=== PATIENT | female | born 1960 ===

== ENCOUNTER 2018-08-02 03:52 | Inpatient (IN) | payer MEDICARE ==
[2018-08-02] MEDS ORDERED: NACL 0.9% 1000 ML 1,000 ML IV ONE (04:16)
[2018-08-02 04:48] LABS: Basophils # (Auto) 0.1 K/mm3 (0.0-0.1); Basophils % (Auto) 0.4 % (0.0-1.8); Hematocrit 42.1 % (30.3-42.9); Hemoglobin 14.2 gm/dl (10.1-14.3); Lymphocytes % (Auto) 5.8 % (13.4-35.0); Mean Corpuscular HGB Conc 34 % (30-34); Mean Corpuscular Volume 88 fl (79-97); Monocytes # (Auto) 0.8 K/mm3 (0.0-0.8); Monocytes % (Auto) 4.4 % (0.0-7.3); Platelet Count 362 K/mm3 (140-440); Red Blood Count 4.78 M/mm3 (3.65-5.03); Red Cell Distribution Width 14.4 % (13.2-15.2)
[2018-08-02 05:12] LABS: Alanine Aminotransferase 21 units/L (7-56); BUN/Creatinine Ratio 11; Blood Urea Nitrogen 10 mg/dL (7-17); Calcium 9.7 mg/dL (8.4-10.2); Hemolysis Index 60
--- NOTE | 2018-08-02 06:37 | Emergency Department Report ---
ED General Adult HPI - General Chief complaint: Dizziness Stated complaint: DIZZINESS VOMITTING PAIN Time Seen by Provider: 08/02/18 06:34 Source: patient Mode of arrival: Ambulatory Limitations: No Limitations - History of Present Illness Initial comments: This is a 58-year-old female with no prior cardiac workup who describes to me an episode consisting of substernal chest discomfort like indigestion" which did not radiate, sweating, nausea, weakness that began at about 5:00 PM yesterday. She states she still feels somewhat weak but is not experiencing chest pain. She states that she's had some shortness of breath. She is recently flown up here from [place] but denies any prolonged flights of road travel. She does not complain of leg pain or swelling. She is generally a poor historian. However she states that the pain was not pleuritic and nonradiating. She additionally tells me that she has "2 veins in her head" which were diagnosed when she was admitted to the hospital [address] [place] [address]. She is not familiar with the term aneurysm. However, she was told this required some follow-up. She gives a history of hypotension. -: Gradual, hour(s) Location: chest Radiation: non-radiation Severity scale (0 -10): 8 Quality: other ("like indigestion") Consistency: now resolved Improves with: none Worsens with: none Associated Symptoms: other (as above described) Treatments Prior to Arrival: none - Related Data Home Medications Medication Instructions Recorded Confirmed Last Taken Aspirin 81 mg PO DAILY 08/02/18 08/02/18 Unknown Losartan-Hctz 100-25 mg Tab 100 mg PO DAILY 08/02/18 08/02/18 Unknown Protonix 40 mg PO DAILY 08/02/18 08/02/18 Unknown Simvastatin 20 mg PO HS 08/02/18 08/02/18 Unknown amLODIPine 5 mg PO DAILY 08/02/18 08/02/18 Unknown Allergies Allergy/AdvReac Type Severity Reaction Status Date / Time clonidine Allergy Anaphylaxis Verified 08/02/18 03:55 Penicillins Allergy Hives Verified 08/02/18 03:55 ED Review of Systems ROS: Stated complaint: DIZZINESS VOMITTING PAIN Other details as noted in HPI Constitutional: weakness, other (dizziness). denies: chills, fever Eyes: denies: eye pain, eye discharge, vision change ENT: denies: ear pain, throat pain Respiratory: shortness of breath. denies: cough, wheezing Cardiovascular: chest pain. denies: palpitations Endocrine: no symptoms reported Gastrointestinal: nausea. denies: abdominal pain, diarrhea Genitourinary: denies: urgency, dysuria, discharge Musculoskeletal: denies: back pain, joint swelling, arthralgia Skin: denies: rash, lesions Neurological: denies: headache, weakness, numbness, paresthesias, confusion, abnormal gait, vertigo Psychiatric: denies: anxiety, depression Hematological/Lymphatic: denies: easy bleeding, easy bruising ED Past Medical Hx - Past Medical History Hx Hypertension: Yes Additional medical history: H.pylori, - Surgical History Past Surgical History?: Yes Hx Cholecystectomy: Yes Additional Surgical History: hysterectomy, - Social History Smoking Status: Never Smoker Substance Use Type: None - Medications Home Medications: Home Medications Medication Instructions Recorded Confirmed Last Taken Type Aspirin 81 mg PO DAILY 08/02/18 08/02/18 Unknown History Losartan-Hctz 100-25 mg Tab 100 mg PO DAILY 08/02/18 08/02/18 Unknown History Protonix 40 mg PO DAILY 08/02/18 08/02/18 Unknown History Simvastatin 20 mg PO HS 08/02/18 08/02/18 Unknown History amLODIPine 5 mg PO DAILY 08/02/18 08/02/18 Unknown History ED Physical Exam - General Limitations: No Limitations General appearance: alert, in no apparent distress - Head Head exam: Present: atraumatic, normocephalic - Eye Eye exam: Present: normal appearance. Absent: scleral icterus - ENT ENT exam: Present: mucous membranes moist - Neck Neck exam: Present: normal inspection. Absent: tenderness, meningismus - Respiratory Respiratory exam: Present: normal lung sounds bilaterally. Absent: respiratory distress - Cardiovascular Cardiovascular Exam: Present: regular rate, normal rhythm. Absent: systolic murmur, diastolic murmur, rubs, gallop - GI/Abdominal GI/Abdominal exam: Present: soft, normal bowel sounds. Absent: distended, tenderness, guarding, rebound, rigid - Extremities Exam Extremities exam: Present: normal inspection - Back Exam Back exam: Present: normal inspection - Neurological Exam Neurological exam: Present: alert, oriented X3, CN II-XII intact. Absent: motor sensory deficit - Psychiatric Psychiatric exam: Present: normal affect, normal mood - Skin Skin exam: Present: warm, dry, intact, normal color. Absent: rash ED Course Vital Signs 08/02/18 08/02/18 08/02/18 03:59 04:08 08:27 Temperature 98.6 F 98.6 F Pulse Rate 108 H 108 H 84 Respiratory 20 16 16 Rate Blood Pressure 105/67 105/67 Blood Pressure 126/72 [Left] O2 Sat by Pulse 94 96 Oximetry - Reevaluation(s) Reevaluation #1: It occurs to me that the patient's amlodipine might be too high dose for her. Her blood pressures initially were on the low side. However, she has unexplained chest pain and will be admitted for further care and evaluation by Dr. Montes. 08/02/18 09:38 08/02/18 09:40 Lactic acid and blood cultures will be obtained. A urinalysis is still pending. ED Medical Decision Making - Lab Data Result diagrams: 08/02/18 04:20 08/02/18 04:20 Laboratory Results - last 24 hr 08/02/18 08/02/18 04:20 04:20 WBC 17.1 H RBC 4.78 Hgb 14.2 Hct 42.1 MCV 88 MCH 30 MCHC 34 RDW 14.4 Plt Count 362 Lymph % (Auto) 5.8 L [place] % (Auto) 4.4 Eos % (Auto) 0.0 Baso % (Auto) 0.4 Lymph # 1.0 L [place] # 0.8 Eos # 0.0 Baso # 0.1 Seg Neutrophils % 89.4 H Seg Neutrophils # 15.3 H Sodium 142 Potassium 3.8 Chloride 102.5 Carbon Dioxide 25 Anion Gap 18 BUN 10 Creatinine 0.9 Estimated GFR > 60 BUN/Creatinine Ratio 11 Glucose 141 H Calcium 9.7 Total Bilirubin 0.60 AST 25 ALT 21 Alkaline Phosphatase 112 Total Protein 7.3 Albumin 4.0 Albumin/Globulin Ratio 1.2 Lipase 14 - EKG Data -: EKG Interpreted by Me EKG shows normal: sinus rhythm, intervals, QRS complexes, ST-T waves Rate: normal - EKG Data Interpretation: other (left axis deviation, poor R-wave progression versus anterior rotation of the horizontal plane) - Radiology Data Radiology results: report reviewed (CT of the head and chest x-ray showed no acute process) Critical care attestation.: If time is entered above; I have spent that time in minutes in the direct care of this critically ill patient, excluding procedure time. ED Disposition Clinical Impression: Weakness Chest pain Qualifiers: Chest pain type: unspecified Qualified Code(s): R07.9 - Chest pain, unspecified Disposition: OP ADMIT IP TO THIS HOSP Is pt being admited?: Yes Does the pt Need Aspirin: Yes Condition: Stable Instructions: Chest Pain (ED) Referrals: LUCIA HERZOG MD [Primary Care Provider] - 3-5 Days Time of Disposition: 09:40
--- NOTE | 2018-08-02 07:41 | XRay Report ---
PROCEDURE: XR CHEST 1V AP TECHNIQUE: A portable upright view of the chest was made. HISTORY: cp COMPARISONS: None FINDINGS: The heart size is normal. The lungs are not congested. There is very mild bibasilar atelectasis. The bones and soft tissues are well-maintained. IMPRESSION: Very mild bibasilar atelectasis. No acute infiltrates or congestion.. This document is electronically signed by Robert Caban MD., August 02 2018 07:39:01 AM ET
[2018-08-02 08:09] LABS: Creatine Kinase MB 1.2 ng/mL (0.0-4.0)
[2018-08-02 08:27] LABS: INR 1.59 (0.87-1.13)
[2018-08-02 08:28] LABS: Partial Thromboplastin Time 34.5 Sec. (24.2-36.6)
--- NOTE | 2018-08-02 08:30 | Cat Scan Report ---
PROCEDURE: CT HEAD/BRAIN WO CON TECHNIQUE: CT images obtained through the head without contrast HISTORY: near syncope history of "2 veins in my head" COMPARISONS: None FINDINGS: The ventricles, cisterns and sulci are within normal limits. No intra parenchymal or extra-axial mass , hemorrhage, or mass effect. Robbins and white-matter differentiation is within normal limits for tatum ent age. Normal spherical shape of the globes. No significant abnormality involving the imaged portions of th e paranasal sinuses and mastoid air cells. No skull or facial fracture visualized. IMPRESSION: No acute intracranial abnormality. This document is electronically signed by Patrick Bonner MD., August 02 2018 08:28:02 AM ET
[2018-08-02] MEDS ORDERED: ASPIRIN PO ONE (09:40)
[2018-08-02] MEDS ORDERED: FLEXERIL PO ONE (09:51)
[2018-08-02] MEDS ORDERED: FLEXERIL ONE (09:59)
[2018-08-02] MEDS ORDERED: FLEXERIL PO PRN (11:32)
[2018-08-02] MEDS ORDERED: SODIUM CHLORIDE FLUSH SYRINGE 10 ML IV PRN (11:34)
[2018-08-02] MEDS ORDERED: ZOFRAN IV PRN (11:37)
--- NOTE | 2018-08-02 11:44 | History and Physical Report ---
History of Present Illness Date of examination: 08/02/18 Date of admission: 08/02/18 09:41 Chief complaint: Epigastric pain History of present illness: 58-year-old -[place]ov[place] female presented to the emergency department complaining of epigastric pain. Yesterday afternoon after she gave plasma patient started to have nausea, vomiting and diarrhea after that the patient is now feeling good and she was almost passed out. Patient is complaining epigastric pain, sharp, stabbing, 10 out of 10 in intensity, with no radiation, associated with shortness of breath and diaphoresis. Patient vomited 3 times and had multiple diarrhea episodes. Patient was treated previously for H. pylori but it recurs and was told to have EGD as an outpatient. Patient said he had history of aneurysm that was seen on CAT scan and told her she need to monitored bed patient didn't follow with any doctors. Patient was in [place] at that time. REVIEW OF SYSTEMS: GENERAL: no weight change, no fatigue, no fever HEAD: no head ache EYES: no blurry vision, no acute visual loss EARS: no hearing loss, no discharge, no earache NOSE: no stuffiness, no sneezing, no discharge MOUTH, THROAT AND NECK: no bleeding gums, no sore throat, no swollen neck CARDIAC: no palpitations, no dyspnea on exertion, no orthopnea, no PND, no edema RESPIRATORY: no wheeze, no cough, no sputum, no hemoptysis, no asthma GI: As stated in HPI. URINARY: no change in frequency, no urgency, no polyuria, no hematuria, no incontinence MUSCULOSKELETAL: no muscle weakness, no pain, no joint stiffness NEUROLOGIC: no loss of sensation/numbness, no tingling, no tremors, no weakness/paralysis HEMATOLOGIC: no anemia, no easy bruising SKIN: no rashes ENDOCRINE: no heat/cold intolerance, no polyuria, no polydipsia, no thyroid problems, no diabetes PSYCHIATRIC: no anxiety, no depression, no suicidal ideations Past History Past Medical History: other (muscle spasm, hx of brain aneurysm) Past Surgical History: cholecystectomy, hysterectomy Social history: full code. denies: smoking, alcohol abuse, prescription drug abuse, IV drug use Family history: other (present had history of brain aneurysm rupture) Medications and Allergies Allergies Allergy/AdvReac Type Severity Reaction Status Date / Time clonidine Allergy Anaphylaxis Verified 08/02/18 03:55 Penicillins Allergy Hives Verified 08/02/18 03:55 Home Medications Medication Instructions Recorded Confirmed Last Taken Type Aspirin 81 mg PO DAILY 08/02/18 08/02/18 Unknown History Losartan-Hctz 100-25 mg Tab 100 mg PO DAILY 08/02/18 08/02/18 Unknown History Protonix 40 mg PO DAILY 08/02/18 08/02/18 Unknown History Simvastatin 20 mg PO HS 08/02/18 08/02/18 Unknown History amLODIPine 5 mg PO DAILY 08/02/18 08/02/18 Unknown History Active Meds: Active Medications Aspirin (Baby Aspirin) 81 mg PO QDAY AZALEA Atorvastatin Calcium (Lipitor) 40 mg PO QHS AZALEA Cyclobenzaprine HCl (Flexeril) 10 mg PO Q8H PRN PRN Reason: Muscle Spasm Levofloxacin/Dextrose (Levaquin 750mg/150ml) 750 mg in 150 mls @ 100 mls/hr IV Q24HR AZALEA; Protocol Ondansetron HCl (Zofran) 4 mg IV Q8H PRN PRN Reason: N/V unrelieved by Reglan Oxycodone/Acetaminophen (Percocet 5/325) 1 tab PO Q8H PRN PRN Reason: Pain, Moderate (4-6) Pantoprazole Sodium (Protonix) 40 mg PO QDAY AZALEA Sodium Chloride (Sodium Chloride Flush Syringe 10 Ml) 10 ml IV PRN PRN PRN Reason: LINE FLUSH Exam - Physical Exam Narrative exam: Not in cardiopulmonary distress. The patient is morbidly obese. Vital signs as documented. Head exam is unremarkable. No scleral icterus . Neck is without jugular venous distension, thyromegaly, or carotid bruits. Lungs are clear to auscultation. Cardiac exam reveals regular rate and Rhythm. First and second heart sounds normal. No murmurs, rubs or gallops. Abdominal exam reveals normal bowel sounds, no masses, no organomegaly and no aortic enlargement. Extremities are nonedematous and both femoral and pedal pulses are normal. SUPERINTENDENT BUILDING: Alert and oriented 3. No focal weakness. - Constitutional Vitals: Temp Pulse Resp BP Pulse Ox 98.6 F 84 16 137/83 96 08/02/18 04:08 08/02/18 11:32 08/02/18 11:32 08/02/18 11:32 08/02/18 11:32 Results - Labs CBC & Chem 7: 08/02/18 04:20 08/02/18 04:20 Labs: Laboratory Last Values WBC 17.1 K/mm3 (4.5-11.0) H 08/02/18 04:20 RBC 4.78 M/mm3 (3.65-5.03) 08/02/18 04:20 Hgb 14.2 gm/dl (10.1-14.3) 08/02/18 04:20 Hct 42.1 % (30.3-42.9) 08/02/18 04:20 MCV 88 fl (79-97) 08/02/18 04:20 MCH 30 pg (28-32) 08/02/18 04:20 MCHC 34 % (30-34) 08/02/18 04:20 RDW 14.4 % (13.2-15.2) 08/02/18 04:20 Plt Count 362 K/mm3 (140-440) 08/02/18 04:20 Lymph % (Auto) 5.8 % (13.4-35.0) L 08/02/18 04:20 [place] % (Auto) 4.4 % (0.0-7.3) 08/02/18 04:20 Eos % (Auto) 0.0 % (0.0-4.3) 08/02/18 04:20 Baso % (Auto) 0.4 % (0.0-1.8) 08/02/18 04:20 Lymph # 1.0 K/mm3 (1.2-5.4) L 08/02/18 04:20 [place] # 0.8 K/mm3 (0.0-0.8) 08/02/18 04:20 Eos # 0.0 K/mm3 (0.0-0.4) 08/02/18 04:20 Baso # 0.1 K/mm3 (0.0-0.1) 08/02/18 04:20 Seg Neutrophils % 89.4 % (40.0-70.0) H 08/02/18 04:20 Seg Neutrophils # 15.3 K/mm3 (1.8-7.7) H 08/02/18 04:20 PT 20.0 Sec. (12.2-14.9) H 08/02/18 07:24 INR 1.59 (0.87-1.13) H 08/02/18 07:24 APTT 34.5 Sec. (24.2-36.6) 08/02/18 07:24 D-Dimer 135.00 ng/mlDDU (0-234) 08/02/18 07:24 Sodium 142 mmol/L (137-145) 08/02/18 04:20 Potassium 3.8 mmol/L (3.6-5.0) 08/02/18 04:20 Chloride 102.5 mmol/L (98-107) 08/02/18 04:20 Carbon Dioxide 25 mmol/L (22-30) 08/02/18 04:20 Anion Gap 18 mmol/L 08/02/18 04:20 BUN 10 mg/dL (7-17) 08/02/18 04:20 Creatinine 0.9 mg/dL (0.7-1.2) 08/02/18 04:20 Estimated GFR > 60 ml/min 08/02/18 04:20 BUN/Creatinine Ratio 11 % 08/02/18 04:20 Glucose 141 mg/dL (65-100) H 08/02/18 04:20 Lactic Acid 1.30 mmol/L (0.7-2.0) 08/02/18 09:46 Calcium 9.7 mg/dL (8.4-10.2) 08/02/18 04:20 Magnesium 2.00 mg/dL (1.7-2.3) 08/02/18 07:24 Total Bilirubin 0.60 mg/dL (0.1-1.2) 08/02/18 04:20 AST 25 units/L (5-40) 08/02/18 04:20 ALT 21 units/L (7-56) 08/02/18 04:20 Alkaline Phosphatase 112 units/L (35-129) 08/02/18 04:20 Total Creatine Kinase 348 units/L (30-135) H 08/02/18 07:24 CK-MB (CK-2) 1.2 ng/mL (0.0-4.0) 08/02/18 07:24 CK-MB (CK-2) Rel Index 0.3 (0-4) 08/02/18 07:24 Troponin T < 0.010 ng/mL (0.00-0.029) 08/02/18 07:24 NT-Pro-B Natriuret Pep < 5 pg/mL (0-900) 08/02/18 07:24 Total Protein 7.3 g/dL (6.3-8.2) 08/02/18 04:20 Albumin 4.0 g/dL (3.9-5) 08/02/18 04:20 Albumin/Globulin Ratio 1.2 % 08/02/18 04:20 Lipase 14 units/L (13-60) 08/02/18 04:20 Assessment and Plan Assessment and plan: Acute gastroenteritis - Patient is on IV Levaquin - Pantoprazole, pain control Epigastric pain associated with shortness of breath - We'll do stress test - EKG and troponin was normal History of recurrent H. pylori, with GERD - We will consult GI - Continue pantoprazole History of brain aneurysm, family history of aneurysm rupture - CT head was normal and will do CTA head Muscle spasm - Continue Flexeril DVT prophylaxis - Heparin Disposition - Admit to telemetry floor
[2018-08-02 12:38] LABS: Bacteria,Urine 1+ /HPF (Negative); Bilirubin,Urine NEG (Negative); Blood,Urine NEG (Negative); Color,Urine Yellow (Yellow); Mucus,Urine 2+ /HPF; Urobilinogen,Urine < 2.0 mg/dL (<2.0)
[2018-08-02 12:43] LABS: Amphetamine Screen,Urine PRESUMPTIVE NEGATIVE; Benzodiazepines Screen,Urine PRESUMPTIVE NEGATIVE; Cannabinoid Screen,Urine PRESUMPTIVE NEGATIVE; Cocaine Screen,Urine PRESUMPTIVE NEGATIVE; Methadone Screen,Urine PRESUMPTIVE NEGATIVE; Opiate Screen,Urine PRESUMPTIVE NEGATIVE
[2018-08-02] MEDS ORDERED: HEPARIN ONE (13:30)
[2018-08-02] MEDS ORDERED: LEVAQUIN 750MG/150ML 750 MG/150 ML BAG IV ONE (13:30)
[2018-08-02] MEDS: HEPARIN SUB-Q SCH ×2 (14:08→21:44)
[2018-08-02] MEDS: LEVAQUIN 750MG/150ML 750 MG/150 ML BAG IV SCH (14:08)
--- NOTE | 2018-08-02 15:10 | Cat Scan Report ---
EXAM: CT ANGIO HEAD HISTORY: synncope, hx of aneurysm and family history TECHNIQUE: Spiral axial CT images with sagittal and coronal reformatted images are obtained through t he brain with the administration of nonionic intravenous contrast. DOSIMETRY: Total DLP: 1165.55 mGycm COMPARISON: Noncontrast head CT dated 08/02/2018. FINDINGS: There is atherosclerotic disease of the carotid siphons marked by mild calcified mural plaque, withou t significant luminal encroachment or narrowing. The [place] of [place] is intact. There is no cerebral aneurysm or dissection seen. No hemodynamically significant arterial stenosis or occlusion involving the anterior cerebral arterie s, middle cerebral arteries, and posterior cerebral arteries seen. The basilar artery and distal vertebral arteries are within normal limits. The visualized internal cerebral veins, emissary veins, and venous sinuses are patent. IMPRESSION: 1. No hemodynamically significant arterial stenosis or occlusion seen. 2. No gross cerebral aneurysm or dissection seen. 3. The venous sinuses and emissary veins are patent. This document is electronically signed by Pao Marie MD., August 02 2018 03:08:05 PM ET
[2018-08-02 16:12] LABS: BUN/Creatinine Ratio 9; Blood Urea Nitrogen 7 mg/dL (7-17); Calcium 9.1 mg/dL (8.4-10.2); Chol/HDL Ratio 2.33 %; HDL Cholesterol 51 mg/dL (40-59); Hemolysis Index 8; LDL Cholesterol,Direct 68 mg/dL (50-130)
[2018-08-02 16:24] LABS: Basophils % (Auto) 0.3 % (0.0-1.8); Hematocrit 37.7 % (30.3-42.9); Hemoglobin 12.7 gm/dl (10.1-14.3); Lymphocytes # (Auto) 1.8 K/mm3 (1.2-5.4); Lymphocytes % (Auto) 11.9 % (13.4-35.0); Mean Corpuscular HGB Conc 34 % (30-34); Mean Corpuscular Volume 87 fl (79-97); Monocytes % (Auto) 6.6 % (0.0-7.3); Platelet Count 292 K/mm3 (140-440); Red Blood Count 4.33 M/mm3 (3.65-5.03); Red Cell Distribution Width 14.3 % (13.2-15.2)
[2018-08-02] MEDS: PERCOCET 5/325 PO PRN (18:16)
[2018-08-03] MEDS: HEPARIN SUB-Q SCH ×3 (07:44→21:44)
[2018-08-03 08:33] LABS: Basophils # (Auto) 0.1 K/mm3 (0.0-0.1); Basophils % (Auto) 0.5 % (0.0-1.8); Eosinophils % (Auto) 0.3 % (0.0-4.3); Hematocrit 35.1 % (30.3-42.9); Lymphocytes # (Auto) 1.6 K/mm3 (1.2-5.4); Lymphocytes % (Auto) 13.5 % (13.4-35.0); Mean Corpuscular HGB Conc 34 % (30-34); Mean Corpuscular Volume 87 fl (79-97); Monocytes # (Auto) 0.6 K/mm3 (0.0-0.8); Monocytes % (Auto) 5.3 % (0.0-7.3); Platelet Count 275 K/mm3 (140-440); Red Blood Count 4.04 M/mm3 (3.65-5.03); Red Cell Distribution Width 14.4 % (13.2-15.2)
[2018-08-03 08:48] LABS: BUN/Creatinine Ratio 8; Blood Urea Nitrogen 7 mg/dL (7-17); Hemolysis Index 0
[2018-08-03] MEDS: PROTONIX PO SCH (09:53)
[2018-08-03] MEDS: BABY ASPIRIN PO SCH (09:54)
[2018-08-03] MEDS: LEVAQUIN 750MG/150ML 750 MG/150 ML BAG IV SCH (09:55)
--- NOTE | 2018-08-03 11:09 | Progress Note ---
Assessment and Plan Assessment and plan: Acute gastroenteritis -resolved Epigastric pain associated with shortness of breath - stress test in am - EKG and troponin was normal - No further w/u by GI Hypokalemia -On repletion, will monitor level SIRS, probably secondary to UTI, present on admission -On IV levofloxacin -urine culture not obtained -Blood cultures negative so far History of recurrent H. pylori with GERD - Continue pantoprazole History of brain aneurysm - CT head and CTA normal Muscle spasm - stable on Flexeril DVT prophylaxis - Heparin Disposition - For discharge if stress test is negative History Interval history: Patient reports feeling better today. She denies nausea, vomiting or diarrhea. Hospitalist Physical - Constitutional Vitals: Temp Pulse Resp BP Pulse Ox 98.0 F 96 H 18 115/71 91 08/02/18 23:18 08/02/18 23:18 08/02/18 23:18 08/02/18 23:18 08/02/18 23:18 General appearance: Present: no acute distress - EENT Eyes: Present: PERRL, EOM intact ENT: hearing intact, clear oral mucosa - Neck Neck: Present: supple - Respiratory Respiratory effort: normal Respiratory: bilateral: CTA - Cardiovascular Rhythm: regular Heart Sounds: Present: S1 & S2 - Extremities Extremities: No edema - Abdominal General gastrointestinal: soft, tender (mild epigastric), normal bowel sounds - Neurologic Neurologic: CNII-XII intact Results - Labs CBC & Chem 7: 08/03/18 07:58 08/03/18 07:58 Labs: Laboratory Last Values WBC 12.0 K/mm3 (4.5-11.0) H 08/03/18 07:58 RBC 4.04 M/mm3 (3.65-5.03) 08/03/18 07:58 Hgb 12.0 gm/dl (10.1-14.3) 08/03/18 07:58 Hct 35.1 % (30.3-42.9) 08/03/18 07:58 MCV 87 fl (79-97) 08/03/18 07:58 MCH 30 pg (28-32) 08/03/18 07:58 MCHC 34 % (30-34) 08/03/18 07:58 RDW 14.4 % (13.2-15.2) 08/03/18 07:58 Plt Count 275 K/mm3 (140-440) 08/03/18 07:58 Lymph % (Auto) 13.5 % (13.4-35.0) 08/03/18 07:58 [place] % (Auto) 5.3 % (0.0-7.3) 08/03/18 07:58 Eos % (Auto) 0.3 % (0.0-4.3) 08/03/18 07:58 Baso % (Auto) 0.5 % (0.0-1.8) 08/03/18 07:58 Lymph # 1.6 K/mm3 (1.2-5.4) 08/03/18 07:58 [place] # 0.6 K/mm3 (0.0-0.8) 08/03/18 07:58 Eos # 0.0 K/mm3 (0.0-0.4) 08/03/18 07:58 Baso # 0.1 K/mm3 (0.0-0.1) 08/03/18 07:58 Seg Neutrophils % 80.4 % (40.0-70.0) H 08/03/18 07:58 Seg Neutrophils # 9.7 K/mm3 (1.8-7.7) H 08/03/18 07:58 PT 20.0 Sec. (12.2-14.9) H 08/02/18 07:24 INR 1.59 (0.87-1.13) H 08/02/18 07:24 APTT 34.5 Sec. (24.2-36.6) 08/02/18 07:24 D-Dimer 135.00 ng/mlDDU (0-234) 08/02/18 07:24 Sodium 141 mmol/L (137-145) 08/03/18 07:58 Potassium 3.1 mmol/L (3.6-5.0) L 08/03/18 07:58 Chloride 105.9 mmol/L (98-107) 08/03/18 07:58 Carbon Dioxide 25 mmol/L (22-30) 08/03/18 07:58 Anion Gap 13 mmol/L 08/03/18 07:58 BUN 7 mg/dL (7-17) 08/03/18 07:58 Creatinine 0.9 mg/dL (0.7-1.2) 08/03/18 07:58 Estimated GFR > 60 ml/min 08/03/18 07:58 BUN/Creatinine Ratio 8 % 08/03/18 07:58 Glucose 99 mg/dL (65-100) 08/03/18 07:58 Lactic Acid 1.30 mmol/L (0.7-2.0) 08/02/18 09:46 Calcium 9.0 mg/dL (8.4-10.2) 08/03/18 07:58 Magnesium 2.00 mg/dL (1.7-2.3) 08/02/18 07:24 Total Bilirubin 0.60 mg/dL (0.1-1.2) 08/02/18 04:20 AST 25 units/L (5-40) 08/02/18 04:20 ALT 21 units/L (7-56) 08/02/18 04:20 Alkaline Phosphatase 112 units/L (35-129) 08/02/18 04:20 Total Creatine Kinase 348 units/L (30-135) H 08/02/18 07:24 CK-MB (CK-2) 1.2 ng/mL (0.0-4.0) 08/02/18 07:24 CK-MB (CK-2) Rel Index 0.3 (0-4) 08/02/18 07:24 Troponin T < 0.010 ng/mL (0.00-0.029) 08/02/18 07:24 NT-Pro-B Natriuret Pep < 5 pg/mL (0-900) 08/02/18 07:24 Total Protein 7.3 g/dL (6.3-8.2) 08/02/18 04:20 Albumin 4.0 g/dL (3.9-5) 08/02/18 04:20 Albumin/Globulin Ratio 1.2 % 08/02/18 04:20 Triglycerides 56 mg/dL (2-149) 08/02/18 15:19 Cholesterol 119 mg/dL (50-199) 08/02/18 15:19 LDL Cholesterol Direct 68 mg/dL (50-130) 08/02/18 15:19 HDL Cholesterol 51 mg/dL (40-59) 08/02/18 15:19 Cholesterol/HDL Ratio 2.33 % 08/02/18 15:19 Lipase 14 units/L (13-60) 08/02/18 04:20 Urine Color Yellow (Yellow) 08/02/18 Unknown Urine Turbidity Slightly-cloudy (Clear) 08/02/18 Unknown Urine pH 5.0 (5.0-7.0) 08/02/18 Unknown Ur Specific Anthony 1.028 (1.003-1.030) 08/02/18 Unknown Urine Protein 30 mg/dl mg/dL (Negative) 08/02/18 Unknown Urine Glucose (UA) Neg mg/dL (Negative) 08/02/18 Unknown Urine Ketones Neg mg/dL (Negative) 08/02/18 Unknown Urine Blood Neg (Negative) 08/02/18 Unknown Urine Nitrite Neg (Negative) 08/02/18 Unknown Urine Bilirubin Neg (Negative) 08/02/18 Unknown Urine Urobilinogen < 2.0 mg/dL (<2.0) 08/02/18 Unknown Ur Leukocyte Esterase Mod (Negative) 08/02/18 Unknown Urine WBC (Auto) 8.0 /HPF (0.0-6.0) H 08/02/18 Unknown Urine RBC (Auto) 4.0 /HPF (0.0-6.0) 08/02/18 Unknown U Epithel Cells (Auto) 5.0 /HPF (0-13.0) 08/02/18 Unknown Urine Bacteria (Auto) 1+ /HPF (Negative) 08/02/18 Unknown Urine Mucus 2+ /HPF 08/02/18 Unknown Urine Opiates Screen Presumptive negative 08/02/18 Unknown Urine Methadone Screen Presumptive negative 08/02/18 Unknown Ur Barbiturates Screen Presumptive negative 08/02/18 Unknown Ur Phencyclidine Scrn Presumptive negative 08/02/18 Unknown Ur Amphetamines Screen Presumptive negative 08/02/18 Unknown U Benzodiazepines Scrn Presumptive negative 08/02/18 Unknown Urine Cocaine Screen Presumptive negative 08/02/18 Unknown U Marijuana (THC) Screen Presumptive negative 08/02/18 Unknown Drugs of Abuse Note Disclamer 08/02/18 Unknown
--- NOTE | 2018-08-03 14:58 | Consultation ---
History of Present Illness - Reason for Consult Consult date: 08/03/18 Abdominal pain Requesting physician: DIANA MENDOZA - History of Present Illness Mrs. 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 She was in her usual state of good health until August 01, when she returned from [place]. She donated plasma that day. She then went to [facility] and ate a sandwich at home. When she took the last bite of the sandwich, she became with dizziness and nausea and lightheadedness. Ultimately, she got sick and rushed to the bathroom where she developed diarrhea and vomiting as well as diaphoresis and lightheadedness. With the vomiting, she then subsequently developed chest pain that was worse with taking a deep breath that would radiate down along her right side of her chest and into her right upper abdomen. Since then, her symptoms have nearly resolved except for the pain in her chest. She denies prior similar symptoms though she does have spasms in her stomach at times and has known irritable bowel syndrome with intermittent abdominal bloating. Her bowel movements are currently were from 1-3 times a day she denies any GI bleeding, fevers, chills, sweats. There is no history of weight loss. She denies heartburn and is on proton pump inhibitors for control of kathy t. There is no dysphagia. She last had a colonoscopy in 2010 in [place]. Past History Past Medical History: hypertension, other (muscle spasm, hx of brain aneurysm) Past Surgical History: cholecystectomy, hysterectomy Social history: full code. denies: smoking, alcohol abuse, prescription drug abuse, IV drug use Family history: other (present had history of brain aneurysm rupture) Medications and Allergies Allergies Allergy/AdvReac Type Severity Reaction Status Date / Time clonidine Allergy Anaphylaxis Verified 08/02/18 03:55 Penicillins Allergy Hives Verified 08/02/18 03:55 Home Medications Medication Instructions Recorded Confirmed Last Taken Type Aspirin 81 mg PO DAILY 08/02/18 08/02/18 Unknown History Losartan-Hctz 100-25 mg Tab 100 mg PO DAILY 08/02/18 08/02/18 Unknown History Protonix 40 mg PO DAILY 08/02/18 08/02/18 Unknown History Simvastatin 20 mg PO HS 08/02/18 08/02/18 Unknown History amLODIPine 5 mg PO DAILY 08/02/18 08/02/18 Unknown History Active Meds: Active Medications Aspirin (Baby Aspirin) 81 mg PO QDAY [facility] Last Admin: 08/03/18 09:54 Dose: 81 mg Documented by: Atorvastatin Calcium (Lipitor) 40 mg PO QHS [facility] Last Admin: 08/02/18 21:44 Dose: 40 mg Documented by: Cyclobenzaprine HCl (Flexeril) 10 mg PO Q8H PRN PRN Reason: Muscle Spasm Last Admin: 08/02/18 21:44 Dose: 10 mg Documented by: Heparin Sodium (Porcine) (Heparin) 5,000 unit SUB-Q Q8HR [facility] Last Admin: 08/03/18 07:44 Dose: 5,000 unit Documented by: Levofloxacin/Dextrose (Levaquin 750mg/150ml) 750 mg in 150 mls @ 100 mls/hr IV Q24HR [facility]; Protocol Last Admin: 08/03/18 09:55 Dose: 100 mls/hr Documented by: Ondansetron HCl (Zofran) 4 mg IV Q8H PRN PRN Reason: N/V unrelieved by Reglan Oxycodone/Acetaminophen (Percocet 5/325) 1 tab PO Q8H PRN PRN Reason: Pain, Moderate (4-6) Last Admin: 08/02/18 18:16 Dose: 1 tab Documented by: Pantoprazole Sodium (Protonix) 40 mg PO QDAY [facility] Last Admin: 08/03/18 09:53 Dose: 40 mg Documented by: Potassium Chloride (K-Dur) 40 meq PO QDAY [facility] Stop: 08/05/18 11:59 Sodium Chloride (Sodium Chloride Flush Syringe 10 Ml) 10 ml IV PRN PRN PRN Reason: LINE FLUSH Review of Systems All systems: negative (as per HPI) Exam - Constitutional Vitals: Temp Pulse Resp BP Pulse Ox 98.0 F 85 18 115/71 91 08/02/18 23:18 08/03/18 10:00 08/02/18 23:18 08/02/18 23:18 08/02/18 23:18 General appearance: Present: no acute distress - EENT Eyes: Present: PERRL, EOM intact ENT: hearing intact - Respiratory Respiratory effort: normal Respiratory: bilateral: CTA - Cardiovascular Rhythm: regular Heart Sounds: Present: S1 & S2 - Extremities Extremities: No edema - Abdominal General gastrointestinal: Present: soft, non-tender - Additional findings Additional findings: Chest exam reveals R lower costochondritis. Results - Labs CBC & Chem 7: 08/03/18 07:58 08/03/18 07:58 Labs: Abnormal lab results 08/02/18 08/02/18 08/03/18 Range/Units 15:19 15:19 07:58 WBC 15.4 H 12.0 H (4.5-11.0) K/mm3 Lymph % (Auto) 11.9 L (13.4-35.0) % [place] # 1.0 H (0.0-0.8) K/mm3 Seg Neutrophils % 81.2 H 80.4 H (40.0-70.0) % Seg Neutrophils # 12.5 H 9.7 H (1.8-7.7) K/mm3 Potassium 3.1 L (3.6-5.0) mmol/L 08/03/18 Range/Units 07:58 WBC (4.5-11.0) K/mm3 Lymph % (Auto) (13.4-35.0) % [place] # (0.0-0.8) K/mm3 Seg Neutrophils % (40.0-70.0) % Seg Neutrophils # (1.8-7.7) K/mm3 Potassium 3.1 L (3.6-5.0) mmol/L Assessment and Plan 1. Abd pain, N/V/diarrhea - resolved. Likely self-limited toxic/infectious process. No further evaluation. 2. Chest/epigastric tenderness - due to costochondritis from vomiting. Local care and manage expectantly. 3. IBS - as outpatient, pt may benefit from TCAs or Welchol. If caren po, okay to D/C home from GI standpoint.
[2018-08-03] MEDS: PERCOCET 5/325 PO PRN ×2 (16:14→23:59)
[2018-08-03] MEDS: K-DUR PO SCH (16:23)
[2018-08-03] MEDS: KCL 10MEQ/100ML 10 MEQ/100 ML BAG IV SCH ×2 (20:09→20:10)
[2018-08-03] MEDS ORDERED: K-DUR PO ONE ×2 (20:12→21:00)
[2018-08-04] MEDS: HEPARIN SUB-Q SCH ×2 (05:55→13:33)
[2018-08-04 08:23] LABS: Basophils # (Auto) 0.1 K/mm3 (0.0-0.1); Basophils % (Auto) 0.9 % (0.0-1.8); Eosinophils # (Auto) 0.2 K/mm3 (0.0-0.4); Eosinophils % (Auto) 2.8 % (0.0-4.3); Hematocrit 35.6 % (30.3-42.9); Hemoglobin 12.3 gm/dl (10.1-14.3); Lymphocytes # (Auto) 1.9 K/mm3 (1.2-5.4); Mean Corpuscular HGB Conc 35 % (30-34); Mean Corpuscular Volume 87 fl (79-97); Monocytes # (Auto) 0.6 K/mm3 (0.0-0.8); Monocytes % (Auto) 6.4 % (0.0-7.3); Platelet Count 272 K/mm3 (140-440); Red Blood Count 4.09 M/mm3 (3.65-5.03); Red Cell Distribution Width 14.4 % (13.2-15.2)
[2018-08-04 08:46] LABS: Creatine Kinase MB 1.1 ng/mL (0.0-4.0)
[2018-08-04 08:47] LABS: BUN/Creatinine Ratio 8; Blood Urea Nitrogen 6 mg/dL (7-17); Calcium 9.2 mg/dL (8.4-10.2); Hemolysis Index 8
[2018-08-04] MEDS ORDERED: LEXISCAN IV ONE ×2 (11:27)
[2018-08-04 12:14] VITALS: BP 137/78
[2018-08-04] MEDS: PROTONIX PO SCH (13:33)
[2018-08-04] MEDS: BABY ASPIRIN PO SCH (13:33)
[2018-08-04] MEDS: K-DUR PO SCH (13:33)
[2018-08-04] MEDS: LEVAQUIN 750MG/150ML 750 MG/150 ML BAG IV SCH (13:33)
[2018-08-04] MEDS: PERCOCET 5/325 PO PRN (13:54)
--- NOTE | 2018-08-04 14:39 | Gastroenterology Progress Note ---
Assessment and Plan 1. Abd pain, N/V/diarrhea - resolved. Likely self-limited toxic/infectious process. No further evaluation. 2. Chest/epigastric tenderness - due to costochondritis from vomiting. Local care and manage expectantly. 3. IBS - as outpatient, pt may benefit from TCAs or Welchol. 4. H/o H pylori infection- s/p treatment. H pylori Stool antigen vs breath test as outpatient -patient okay to be d/c per GI standpoint with f/u in clinic in ~2-3 weeks -will sign off, please call if needed Subjective Date of service: 08/04/18 Principal diagnosis: recurrent H pylori Interval history: No acute distress. Objective - Constitutional Vitals: Temp Pulse Resp BP Pulse Ox 98.4 F 68 20 137/78 95 08/04/18 04:20 08/04/18 08:00 08/04/18 04:20 08/04/18 11:32 08/04/18 04:47 General appearance: no acute distress - Respiratory Respiratory: bilateral: CTA - Cardiovascular Rhythm: regular - Gastrointestinal General gastrointestinal: Present: soft, tender (slight TTP), non-distended, normal bowel sounds - Labs CBC & Chem 7: 08/04/18 08:10 08/04/18 08:10 Labs: Laboratory Results - last 24 hr 08/04/18 08/04/18 08/04/18 08:10 08:10 08:10 WBC 8.8 RBC 4.09 Hgb 12.3 Hct 35.6 MCV 87 MCH 30 MCHC 35 H RDW 14.4 Plt Count 272 Lymph % (Auto) 22.0 [place] % (Auto) 6.4 Eos % (Auto) 2.8 Baso % (Auto) 0.9 Lymph # 1.9 [place] # 0.6 Eos # 0.2 Baso # 0.1 Seg Neutrophils % 67.9 Seg Neutrophils # 6.0 Sodium 143 Potassium 3.7 Chloride 108.7 H Carbon Dioxide 25 Anion Gap 13 BUN 6 L Creatinine 0.8 Estimated GFR > 60 BUN/Creatinine Ratio 8 Glucose 93 Calcium 9.2 Magnesium 2.20 Total Creatine Kinase 167 H CK-MB (CK-2) 1.1 CK-MB (CK-2) Rel Index 0.6 Troponin T < 0.010
--- NOTE | 2018-08-04 17:16 | Discharge Summary ---
Providers - Providers Date of Admission: 08/02/18 09:41 Date of discharge: 08/04/18 Attending physician: RIZWAN NASSAR 08/02/18 Consult to Cardiac Rehabilitation [CONS] Routine Reason For Exam: Phase I 08/02/18 11:52 Consult to Physician [CONS] Routine Comment: Consulting Provider: ARBEN QUEVEDO Physician Instructions: Reason For Exam: recurrent h.pylori Primary care physician: LUCIA HERZOG MD Hospitalization Reason for admission: Acute gastroenteritis Condition: Stable Pertinent studies: -Head CTA -Chest x-ray -Nuclear stress test Hospital course: Acute gastroenteritis Epigastric pain associated with shortness of breath Hypokalemia, resolved SIRS, probably secondary to UTI History of recurrent H. pylori with GERD History of brain aneurysm, CTA head negative Muscle spasm Hospital course: Patient was admitted and placed on IV fluids in addition to antiemetics and PPI. She later developed hypokalemia for which she received both IV and oral supplements with resolution. In addition, patient was suspected to have an underlying infection for which she received IV antibiotic after blood cultures were obtained. For the muscle spasm, she was placed on an when necessary Flexeril. Due to the epigastric pain with dyspnea, she was further evaluated with nuclear stress testing which was reported as negative. She was also evaluated by the GI team, however no further investigative testing was recommended. Subsequently, she improved clinically and she was then deemed stable for discharge with clinic follow-up. Of note, the blood cultures came back negative for any growth in 48 hours. Disposition: -01 TO HOME OR SELFCARE Time spent for discharge: 35 minutes Core Measure Documentation - Palliative Care Palliative Care/ Comfort Measures: Not Applicable - Core Measures Any of the following diagnoses?: none Exam - Constitutional Vitals: Temp Pulse Resp BP Pulse Ox 98.4 F 68 20 137/78 95 08/04/18 04:20 08/04/18 08:00 08/04/18 04:20 08/04/18 11:32 08/04/18 04:47 General appearance: Present: no acute distress, well-nourished - EENT Eyes: Present: PERRL, EOM intact ENT: hearing intact, clear oral mucosa - Neck Neck: Present: supple, normal ROM - Respiratory Respiratory effort: normal Respiratory: bilateral: CTA - Cardiovascular Rhythm: regular Heart Sounds: Present: S1 & S2. Absent: rub, click - Extremities Extremities: pulses symmetrical, No edema Peripheral Pulses: within normal limits - Abdominal General gastrointestinal: Present: soft, non-tender, non-distended, normal bowel sounds - Integumentary Integumentary: Present: clear, warm, dry - Musculoskeletal Musculoskeletal: gait normal, strength equal bilaterally - Psychiatric Psychiatric: appropriate mood/affect, intact judgment & insight - Neurologic Neurologic: CNII-XII intact, moves all extremities Plan Follow up with: LUCIA HERZOG MD [Primary Care Provider] - 3-5 Days Prescriptions: Cyclobenzaprine [Flexeril] 10 mg PO TID PRN #60 tablet PRN Reason: Muscle Spasm RX: levoFLOXacin [Levaquin TAB] 750 mg PO QDAY #5 tablet
--- NOTE | 2018-08-04 23:06 | Treadmill Report ---
THALLIUM STRESS TEST LEFT VENTRICLE: Left ventricular chamber size is within normal spread. Perfusion study demonstrates homogeneous uptake of the tracer in all segments, no significant perfusion defects identified. Gated analysis demonstrates normal left ventricular systolic function, ejection fraction greater than 70%. CONCLUSION: Normal myocardial perfusion study. JOB# [id number] CA/NTS
== END 2018-08-04 18:50 | disposition home or self-care (01) | DRG 206 ==
LOC: ED 03:52 → 4A 09:41
PROVIDERS: ADMIT Internal Medicine; ATTEND Internal Medicine
DX: M94.0 Chondrocostal junction syndrome [Tietze] (principal); N39.0 Urinary tract infection, site not specified; R65.10 Systemic inflammatory response syndrome (SIRS) of non-infectious origin without acute organ dysfunction; Z68.41 Body mass index [BMI] 40.0-44.9, adult; K52.9 Noninfective gastroenteritis and colitis, unspecified; M62.838 Other muscle spasm; E87.6 Hypokalemia; K21.9 Gastro-esophageal reflux disease without esophagitis; E66.01 Morbid (severe) obesity due to excess calories; Z71.3 Dietary counseling and surveillance; Z90.710 Acquired absence of both cervix and uterus; Z90.49 Acquired absence of other specified parts of digestive tract; Z88.0 Allergy status to penicillin; Z88.8 Allergy status to other drugs, medicaments and biological substances; Z79.82 Long term (current) use of aspirin; Z79.899 Other long term (current) drug therapy
CPT/HCPCS: 36415; 70450; 70496; 71045; 78452; 80048; 80053; 80061; 80307; 81001; 82140; 82550; 82553; 83690; 83735; 83880; 84484; 85025; 85379; 85610; 85730; 87040; 87086; 93005; 93010; 93017; G0378; A9270-GY; A9502; J1644; J1956; J2785; J3480; J7030; Q9967